=== PATIENT | female | born 1985 | race Caucasian/White ===

== ENCOUNTER 2021-07-10 19:55 | Emergency (ER) | payer MEDICAID ==
[~2021-07-10] VITALS: Ht 157.5 cm; Wt 128.0 kg
[2021-07-10 20:08] VITALS: BP 151/82
[2021-07-10] MEDS ORDERED: HYDROCODONE/ACETAMINOPHEN 5/325MG TABLET PO ONE (20:45)
[2021-07-10] MEDS ORDERED: LIDOCAINE HCL/PF 1% 10 MG/ML 5ML VIAL INFIL ONE (20:45)
[2021-07-10] MEDS ORDERED: LIDOCAINE HCL 1% 20ML VIAL (Pyxis) INJ INFIL NR (21:07)
[2021-07-10] MEDS ORDERED: CEPH500C2 MT (22:13)
[2021-07-10] MEDS ORDERED: HYDR-4001 MT (22:13)
[2021-07-10] MEDS ORDERED: SULF1TAB48 MT (22:13)
[2021-07-10] MEDS ORDERED: CEFTRIAXONE SODIUM 1 G/VIAL IM ONE (22:15)
[2021-07-10] MEDS ORDERED: TETANUS, DIPHTHERIA, PERTUSSIS VAC/PF 0.5ML (>10YR OLD) IM ONE (22:30)
== END 2021-07-10 23:11 | disposition home or self-care (01) ==
LOC: ER 19:55
DX: L08.9 Local infection of the skin and subcutaneous tissue, unspecified (principal); M79.674 Pain in right toe(s); E11.9 Type 2 diabetes mellitus without complications; I10 Essential (primary) hypertension; Z97.5 Presence of (intrauterine) contraceptive device; Z98.890 Other specified postprocedural states; Z88.6 Allergy status to analgesic agent
CPT/HCPCS: 11730; 73630; 90471; 90715; 96372; 99284; J0696; J3490

== ENCOUNTER 2021-07-26 03:12 | Emergency (ER) | payer MEDICAID ==
[~2021-07-26] VITALS: Ht 157.5 cm; Wt 122.0 kg
[~2021-07-26 03:12] MED LIST: CEPH500C2 MT; HYDR-4001 MT; SULF1TAB48 MT
[2021-07-26] MEDS ORDERED: KETOROLAC 60MG/2ML VIAL IM ONE (07:00)
[2021-07-26] MEDS ORDERED: HYDROCODONE/ACETAMINOPHEN 5/325MG TABLET PO ONE (07:15)
[2021-07-26 07:20] VITALS: BP 165/93
== END 2021-07-26 07:50 | disposition home or self-care (01) ==
LOC: ER 03:31
DX: S09.8XXA Other specified injuries of head, initial encounter (principal); R07.9 Chest pain, unspecified; E11.9 Type 2 diabetes mellitus without complications; I10 Essential (primary) hypertension; E78.00 Pure hypercholesterolemia, unspecified; W01.0XXA Fall on same level from slipping, tripping and stumbling without subsequent striking against object, initial encounter; Y93.F1 Activity, caregiving, bathing; Y92.89 Other specified places as the place of occurrence of the external cause; Y99.9 Unspecified external cause status; Z98.890 Other specified postprocedural states
CPT/HCPCS: 71045; 93005; 96372; 99283; J1885

== ENCOUNTER 2021-11-11 08:25 | Emergency (ER) | payer MEDICAID ==
[~2021-11-11] VITALS: Ht 162.6 cm; Wt 86.0 kg
[2021-11-11 10:03] LABS: CLARITY URINE CLEAR (CLEAR); COLOR URINE YELLOW (YELLOW); KETONES URINE NEGATIVE (NEGATIVE); LEUKOCYTE ESTERASE URINE 3+ (NEGATIVE); NITRITE URINE NEGATIVE (NEGATIVE); OCCULT BLOOD URINE NEGATIVE (NEGATIVE); PH URINE 5.5 (4.5-8.0); PROTEIN URINE NEGATIVE (NEGATIVE); SPECIFIC GRAVITY URINE 1.012 (1.005-1.030); UROBILINOGEN URINE 0.2 E.U./dL (0.2-1.0)
[2021-11-11] MEDS ORDERED: IBUP-2029 MT (10:16)
[2021-11-11] MEDS ORDERED: ONDA4TAB50 MT (10:16)
[2021-11-11] MEDS ORDERED: SULF1TAB48 MT (10:16)
[2021-11-11 10:33] VITALS: BP 141/71
[2021-11-11] MEDS ORDERED: SULFAMETHOXAZOLE/TRIMETHOPRIM 800/160MG TABLET PO NR (11:00)
== END 2021-11-11 10:33 | disposition home or self-care (01) ==
LOC: ER 08:25
DX: N39.0 Urinary tract infection, site not specified (principal); I10 Essential (primary) hypertension; E78.00 Pure hypercholesterolemia, unspecified; E11.9 Type 2 diabetes mellitus without complications; Z13.9 Encounter for screening, unspecified; Z88.6 Allergy status to analgesic agent; Z98.890 Other specified postprocedural states
CPT/HCPCS: 81003; 99283

== ENCOUNTER 2022-09-14 18:33 | Inpatient (IN) | payer MEDICAID ==
[~2022-09-14] VITALS: Ht 157.5 cm; Wt 118.8 kg
[~2022-09-14 18:33] MED LIST changes: +IBUP-2029 MT; +ONDA4TAB50 MT
[2022-09-14] MEDS ORDERED: FAMOTIDINE 20MG/2ML VIAL IV ONE (19:00)
[2022-09-14] MEDS ORDERED: METHYLPREDNISOLONE SOD SUCC 125 MG/2 ML VIAL IV ONE (19:00)
[2022-09-14] MEDS ORDERED: EPINEPHRINE 1:1000 1 MG/ML AMP IM ONE (19:00)
[2022-09-14] MEDS ORDERED: SODIUM CHLORIDE 0.9% 1,000 ML IV SCH (19:00)
[2022-09-14] MEDS: ALBUTEROL (0.083%) 2.5MG/3ML NEB HHN SCH ×2 (19:33→19:34)
[2022-09-14 19:42] LABS: BASOPHILS % 0.3 % (0.0-2.0); EOSINOPHILS % 1.8 % (0.0-5.0); HEMATOCRIT. 37.4 % (36.0-48.0); HEMOGLOBIN. 12.5 g/dL (12.0-16.0); LYMPHOCYTES % 34.8 % (20.0-50.0); MEAN CORPUSCULAR HEMOGLOBIN 30.7 pg (28.0-32.0); MEAN CORPUSCULAR VOLUME 91.5 fL (81.0-99.0); MEAN PLATELET VOLUME 9.3 fl (7.4-10.4); MONOCYTES % 8.2 % (2.0-8.0); NEUTROPHILS % 54.9 % (40.0-76.0); PLATELET 312 x1000/uL (130-400); RED BLOOD CELL COUNT 4.09 mill/uL (4.2-5.4); RED CELL DISTRIBUTION WIDTH 13.7 % (11.6-14.6)
[2022-09-14 20:35] LABS: CHLORIDE 105 mEq/L (98-107)
[2022-09-14] MEDS ORDERED: ONDANSETRON HCL 4MG/2ML INJ IV PRN (21:45)
[2022-09-14] MEDS ORDERED: EPINEPHRINE 1:1000 1 MG/ML AMP IM PRN (21:45)
[2022-09-14] MEDS ORDERED: DEXTROSE 50% WATER 50ML SYRINGE IV PRN (21:45)
[2022-09-14] MEDS ORDERED: CLONIDINE 0.1MG TABLET PO PRN (21:45)
[2022-09-14] MEDS: FAMOTIDINE 20MG/2ML VIAL IV SCH (22:18)
[2022-09-14] MEDS: DIPHENHYDRAMINE 50MG/ML VIAL IV SCH (22:18)
[2022-09-15 05:39] LABS: CHLORIDE 108 mEq/L (98-107)
[2022-09-15 05:56] LABS: BASOPHILS % 0.1 % (0.0-2.0); HEMATOCRIT. 39.9 % (36.0-48.0); HEMOGLOBIN. 12.9 g/dL (12.0-16.0); LYMPHOCYTES % 6.5 % (20.0-50.0); MEAN CORPUSCULAR HEMOGLOBIN 29.9 pg (28.0-32.0); MEAN CORPUSCULAR VOLUME 92.8 fL (81.0-99.0); MEAN PLATELET VOLUME 9.1 fl (7.4-10.4); NEUTROPHILS % 92.4 % (40.0-76.0); PLATELET 264 x1000/uL (130-400); RED CELL DISTRIBUTION WIDTH 14.1 % (11.6-14.6)
[2022-09-15] MEDS: DIPHENHYDRAMINE 50MG/ML VIAL IV SCH ×3 (06:12→20:20)
[2022-09-15] MEDS: BLOOD SUGAR DIAGNOSTIC STRIP TEST SCH ×4 (06:27→20:20)
[2022-09-15] MEDS: METHYLPREDNISOLONE SOD SUCC 125 MG/2 ML VIAL IV SCH ×3 (09:47→20:20)
[2022-09-15] MEDS: FAMOTIDINE 20MG/2ML VIAL IV SCH ×2 (10:44→20:20)
[2022-09-15] MEDS: INSULIN LISPRO 100 UNITS/ML SUBCUT SCH ×3 (11:00→20:32)
[2022-09-15] MEDS ORDERED: RACEPINEPHRINE 2.25% 0.5ML NEB VIAL HHN PRN (11:30)
[2022-09-15] MEDS ORDERED: IPRATROPIUM/ALBUTEROL 0.5-3(2.5)MG/3ML NEB HHN PRN (11:30)
[2022-09-15 14:59] VITALS: BP 118/55
[2022-09-15 15:00] VITALS: BP 118/55
[2022-09-15] MEDS ORDERED: ATOR10TA69 PO (15:58)
[2022-09-15] MEDS ORDERED: ENAL-75 PO (15:58)
[2022-09-15] MEDS ORDERED: METF-414 PO (15:58)
[2022-09-15] MEDS ORDERED: GLYB5TAB7 PO (15:58)
[2022-09-15 16:00] VITALS: BP 111/58
[2022-09-15] MEDS: METFORMIN HCL 500MG TABLET PO SCH (17:37)
[2022-09-15 20:02] VITALS: BP 128/68
[2022-09-15] MEDS: ATORVASTATIN CALCIUM 10MG TABLET PO SCH (20:20)
[2022-09-16 00:05] VITALS: BP 115/64
[2022-09-16 04:00] VITALS: BP 123/57
[2022-09-16] MEDS: BLOOD SUGAR DIAGNOSTIC STRIP TEST SCH ×4 (05:28→21:00)
[2022-09-16] MEDS: DIPHENHYDRAMINE 50MG/ML VIAL IV SCH ×3 (05:28→21:32)
[2022-09-16] MEDS: METHYLPREDNISOLONE SOD SUCC 125 MG/2 ML VIAL IV SCH ×3 (05:28→21:32)
[2022-09-16] MEDS: INSULIN LISPRO 100 UNITS/ML SUBCUT SCH ×4 (05:33→21:33)
[2022-09-16 08:00] VITALS: BP 113/67
[2022-09-16] MEDS: FAMOTIDINE 20MG/2ML VIAL IV SCH (08:45)
[2022-09-16] MEDS: GLYBURIDE 5MG TABLET PO SCH ×3 (08:45→17:24)
[2022-09-16] MEDS: METFORMIN HCL 500MG TABLET PO SCH ×2 (08:45→17:24)
[2022-09-16] MEDS: ENALAPRIL 5MG TABLET PO SCH (08:46)
[2022-09-16] MEDS ORDERED: INSULIN LISPRO 100 UNITS/ML SUBCUT NR (11:45)
[2022-09-16 12:00] VITALS: BP 116/57
[2022-09-16] MEDS ORDERED: DEXTROSE 50% WATER 50ML SYRINGE IV PRN (12:00)
[2022-09-16] MEDS ORDERED: BLOOD SUGAR DIAGNOSTIC STRIP TEST SCH (12:40)
[2022-09-16] MEDS ORDERED: INSULIN LISPRO 100 UNITS/ML SUBCUT SCH (13:10)
[2022-09-16 16:00] VITALS: BP 113/69
[2022-09-16 20:42] VITALS: BP 120/63
[2022-09-16] MEDS: ATORVASTATIN CALCIUM 10MG TABLET PO SCH (21:32)
[2022-09-16] MEDS: FAMOTIDINE 20MG TABLET PO SCH (21:32)
[2022-09-17 00:11] VITALS: BP 114/67
[2022-09-17 04:00] VITALS: BP 115/63
[2022-09-17] MEDS: BLOOD SUGAR DIAGNOSTIC STRIP TEST SCH ×2 (06:17→12:40)
[2022-09-17] MEDS: INSULIN LISPRO 100 UNITS/ML SUBCUT SCH ×2 (06:17→12:48)
[2022-09-17] MEDS: METHYLPREDNISOLONE SOD SUCC 125 MG/2 ML VIAL IV SCH ×2 (06:17→14:02)
[2022-09-17] MEDS: DIPHENHYDRAMINE 50MG/ML VIAL IV SCH ×2 (06:17→14:02)
[2022-09-17 07:35] VITALS: BP 126/70
[2022-09-17 07:47] LABS: HEMATOCRIT. 35.4 % (36.0-48.0); HEMOGLOBIN. 11.8 g/dL (12.0-16.0); MEAN CORPUSCULAR HEMOGLOBIN 30.1 pg (28.0-32.0); MEAN PLATELET VOLUME 10.2 fl (7.4-10.4); PLATELET 275 x1000/uL (130-400); RED BLOOD CELL COUNT 3.93 mill/uL (4.2-5.4); RED CELL DISTRIBUTION WIDTH 13.5 % (11.6-14.6)
[2022-09-17 08:33] LABS: CHLORIDE 102 mEq/L (98-107)
[2022-09-17] MEDS: GLYBURIDE 5MG TABLET PO SCH ×2 (08:52→12:47)
[2022-09-17] MEDS: METFORMIN HCL 500MG TABLET PO SCH (08:52)
[2022-09-17] MEDS: ENALAPRIL 5MG TABLET PO SCH (08:52)
[2022-09-17] MEDS: FAMOTIDINE 20MG TABLET PO SCH (08:52)
[2022-09-17 11:46] VITALS: BP 122/71
[2022-09-17] MEDS ORDERED: MED4 MT (13:21)
[2022-09-17] MEDS ORDERED: EPIN0.3P3 IM (13:21)
[2022-09-17 13:57] VITALS: BP 125/69
[2022-09-17 15:46] LABS: PLATELET ESTIMATE NORMAL
== END 2022-09-17 15:57 | disposition home or self-care (01) | DRG 811 ==
LOC: ER 18:33 → MICUSO 21:25 → EDBEDREQ 21:31 → 7WST 09-15 14:39
PROVIDERS: ADMIT Family Medicine Adult Medicine; ATTEND Family Medicine Adult Medicine
DX: T78.09XA Anaphylactic reaction due to other food products, initial encounter (principal); J96.00 Acute respiratory failure, unspecified whether with hypoxia or hypercapnia; D72.829 Elevated white blood cell count, unspecified; E11.65 Type 2 diabetes mellitus with hyperglycemia; E78.00 Pure hypercholesterolemia, unspecified; E66.01 Morbid (severe) obesity due to excess calories; Z20.822 Contact with and (suspected) exposure to COVID-19; I10 Essential (primary) hypertension; T39.1X5A Adverse effect of 4-Aminophenol derivatives, initial encounter; Z82.49 Family history of ischemic heart disease and other diseases of the circulatory system; Z98.891 History of uterine scar from previous surgery; Z88.6 Allergy status to analgesic agent; Z79.84 Long term (current) use of oral hypoglycemic drugs; Z68.42 Body mass index [BMI] 45.0-49.9, adult; Y92.89 Other specified places as the place of occurrence of the external cause
CPT/HCPCS: 36415; 71045; 80048; 80053; 82962; 83036; 85025; 87426; 93970; 94640; 99291; C9803; J1200; J1815; J2930; J3490

== ENCOUNTER 2023-02-12 18:38 | Emergency (ER) | payer MEDICAID ==
[~2023-02-12] VITALS: Ht 157.5 cm; Wt 127.0 kg
[~2023-02-12 18:38] MED LIST changes: +ATOR10TA69 PO; -CEPH500C2 MT; +ENAL-75 PO; +EPIN0.3P3 IM; +GLYB5TAB7 PO; +MED4 MT; +METF-414 PO; -SULF1TAB48 MT
[2023-02-12 18:41] VITALS: BP 160/53; PULSE 98; RESP 18; TEMP 98.9; O2SAT 100
[2023-02-12] MEDS ORDERED: KETOROLAC 30MG/ML VIAL IM ONE (19:30)
[2023-02-12] MEDS ORDERED: IBUP-2029 MT (19:43)
[2023-02-12] MEDS ORDERED: KETOROLAC 30MG/ML VIAL IM NR (20:30)
== END 2023-02-12 21:01 | disposition home or self-care (01) ==
LOC: ER 18:38
DX: S90.31XA Contusion of right foot, initial encounter (principal); S93.401A Sprain of unspecified ligament of right ankle, initial encounter; E11.9 Type 2 diabetes mellitus without complications; E78.00 Pure hypercholesterolemia, unspecified; I10 Essential (primary) hypertension; Z98.890 Other specified postprocedural states; Z79.899 Other long term (current) drug therapy; X58.XXXA Exposure to other specified factors, initial encounter; Y93.89 Activity, other specified; Y92.89 Other specified places as the place of occurrence of the external cause; Y99.8 Other external cause status
CPT/HCPCS: 73630; 96372; 99283; J1885; Z7610 ×2

== ENCOUNTER 2023-09-29 18:49 | Emergency (ER) | payer MEDICAID ==
[~2023-09-29] VITALS: Ht 157.5 cm; Wt 127.0 kg
[2023-09-29 18:50] VITALS: TEMP 98.3; O2SAT 99
[2023-09-29 22:18] VITALS: BP 145/100; PULSE 110; RESP 12
[2023-09-29] MEDS: CYCLOBENZAPRINE 10MG TABLET PO ONE (22:18)
[2023-09-29] MEDS: IBUPROFEN 600MG TABLET PO ONE (22:18)
[2023-09-29] MEDS ORDERED: CYCL10TA21 MT (22:32)
[2023-09-29] MEDS ORDERED: NAPR-1176 MT (22:32)
== END 2023-09-29 22:45 | disposition home or self-care (01) ==
LOC: ER 18:49
DX: S90.32XA Contusion of left foot, initial encounter (principal); I10 Essential (primary) hypertension; E11.9 Type 2 diabetes mellitus without complications; E78.00 Pure hypercholesterolemia, unspecified; Z88.6 Allergy status to analgesic agent; Z90.49 Acquired absence of other specified parts of digestive tract; Z98.890 Other specified postprocedural states; X58.XXXA Exposure to other specified factors, initial encounter; Y93.01 Activity, walking, marching and hiking; Y92.89 Other specified places as the place of occurrence of the external cause; Y99.8 Other external cause status
CPT/HCPCS: 73620; 93971; 99284

== ENCOUNTER 2024-02-21 20:46 | Emergency (ER) | payer MEDICAID ==
[~2024-02-21] VITALS: Ht 157.5 cm; Wt 118.0 kg
[~2024-02-21 20:46] MED LIST changes: +CYCL10TA21 MT; -MED4 MT; +METH4TAB95 MT; +NAPR-1176 MT
[2024-02-21 21:21] VITALS: O2SAT 100
[2024-02-21 21:31] VITALS: BP 140/94; PULSE 102; RESP 16; TEMP 98.7; O2SAT 100
[2024-02-21] MEDS: FAMOTIDINE 20MG/2ML VIAL IV ONE (22:55)
[2024-02-21] MEDS: DIPHENHYDRAMINE 50MG/ML VIAL IM ONE (22:55)
[2024-02-21] MEDS ORDERED: EPIN0.3P3 IM (23:46)
[2024-02-22] MEDS: DEXAMETHASONE 10 MG/ML VIAL IM ONE (00:15)
== END 2024-02-22 00:44 | disposition home or self-care (01) ==
LOC: ER 20:46
DX: T78.40XA Allergy, unspecified, initial encounter (principal); E11.9 Type 2 diabetes mellitus without complications; E78.00 Pure hypercholesterolemia, unspecified; I10 Essential (primary) hypertension; Z90.49 Acquired absence of other specified parts of digestive tract; Z79.899 Other long term (current) drug therapy; Z98.890 Other specified postprocedural states; Z88.6 Allergy status to analgesic agent; X58.XXXA Exposure to other specified factors, initial encounter; Y93.89 Activity, other specified; Y92.89 Other specified places as the place of occurrence of the external cause; Y99.8 Other external cause status
CPT/HCPCS: 99284; 96374; 96372 ×2; J1200; J3490; J1100

== ENCOUNTER 2024-06-14 03:19 | Emergency (ER) | payer MEDICAID ==
[~2024-06-14 03:19] MED LIST changes: +ASPI-1406 PO; +ATOR20TA65 PO; +BLOO-1657 XX; +CHOL2000 PO; +DICL100G58 TP; +DIPH25CA51 PO; +ENAL-77 PO; +EPIN0.3A3 IM; -HYDR-4001 MT; +LIDO700A30 TP; +METF-416 PO; +TIRZ5PEN SUBCUT
[2024-06-14] MEDS: EPINEPHRINE 1:1000 1 MG/ML AMP SUBCUT ONE (03:29)
[2024-06-14] MEDS: METHYLPREDNISOLONE SOD SUCC 125MG/2ML (ACT-O-VIAL) IV ONE (03:30)
[2024-06-14] MEDS: SODIUM CHLORIDE 0.9% 1,000 ML IV ONE (03:30)
[2024-06-14] MEDS: DIPHENHYDRAMINE 50MG/ML VIAL IV ONE ×2 (03:30→05:00)
[2024-06-14] MEDS: FAMOTIDINE 20MG/2ML VIAL IV ONE ×2 (03:34→06:01)
[2024-06-14 03:37] LABS: BASOPHILS % 0.6 % (0.0-2.0); EOSINOPHILS % 1.2 % (0.0-5.0); HEMATOCRIT. 38.3 % (36.0-48.0); LYMPHOCYTES % 37.1 % (20.0-50.0); MEAN CORPUSCULAR HEMOGLOBIN 30.8 pg (28.0-32.0); MEAN CORPUSCULAR HGB CONC 34.1 g/dL (31.0-37.0); MEAN CORPUSCULAR VOLUME 90.4 fL (81.0-99.0); MEAN PLATELET VOLUME 9.9 fl (7.4-10.4); NEUTROPHILS % 52.1 % (40.0-76.0); PLATELET 316 x1000/uL (130-400); RED BLOOD CELL COUNT 4.24 mill/uL (4.2-5.4); RED CELL DISTRIBUTION WIDTH 13.7 % (11.6-14.6); WHITE BLOOD COUNT 11.7 x1000/uL (4.5-11.0)
[2024-06-14 03:46] LABS: CHLORIDE 102 mEq/L (98-107); POTASSIUM 4.4 mEq/L (3.5-5.1); SODIUM 134 mEq/L (136-145)
[2024-06-14 03:47] LABS: CALCIUM 9.5 mg/dL (8.7-10.4); CARBON DIOXIDE 18 mEq/L (21-32)
[2024-06-14 03:52] LABS: CREATININE 0.9 mg/dL (0.6-1.0); GLUCOSE 278 mg/dL (70-105); UREA NITROGEN BLOOD 15 mg/dL (9-23)
[2024-06-14 04:17] LABS: HCG SCREEN NEGATIVE
[2024-06-14] MEDS: KETOROLAC 15MG/ML VIAL IV ONE (04:20)
[2024-06-14] MEDS ORDERED: P20 MT (05:58)
[2024-06-14] MEDS ORDERED: EPIN0.3P3 IM (05:58)
[2024-06-14] MEDS ORDERED: DIPH25TA62 MT (05:58)
[2024-06-14] MEDS ORDERED: FAMO-287 MT (05:58)
[2024-06-14 06:06] VITALS: BP 133/77; PULSE 99; RESP 22; O2SAT 96
== END 2024-06-14 06:20 | disposition home or self-care (01) ==
LOC: ER 03:19
DX: T78.40XA Allergy, unspecified, initial encounter (principal); L50.9 Urticaria, unspecified; E11.65 Type 2 diabetes mellitus with hyperglycemia; E78.00 Pure hypercholesterolemia, unspecified; I10 Essential (primary) hypertension; Z90.49 Acquired absence of other specified parts of digestive tract; Z79.899 Other long term (current) drug therapy; Z88.6 Allergy status to analgesic agent; X58.XXXA Exposure to other specified factors, initial encounter
CPT/HCPCS: 80048; 84703; 85025; 36415; 71045; 93005; 96361; 96372; 96374; 96375; 96376; 99285; J1200; J3490 ×2; J1885; J2919; J7030; A4663; Z7610 ×2; A4606

== ENCOUNTER 2025-03-05 20:43 | Emergency (ER) | payer MEDICAID ==
[~2025-03-05] VITALS: Ht 167.6 cm; Wt 113.0 kg
[~2025-03-05 20:43] MED LIST changes: -ATOR10TA69 PO; -DIPH25CA51 PO; +DIPH25CA83 MT; -ENAL-75 PO; -ENAL-77 PO; -EPIN0.3A3 IM; +FAMO-135 MT; +IBUP-1455 MT; -IBUP-2029 MT; -METF-414 PO
[2025-03-05] MEDS: KETOROLAC 30MG/ML VIAL IM ONE (22:49)
[2025-03-05] MEDS ORDERED: IBUP-2030 MT (23:56)
[2025-03-06 00:01] VITALS: BP 139/94; PULSE 86; RESP 18; TEMP 37.2; O2SAT 99
== END 2025-03-06 00:06 | disposition home or self-care (01) ==
LOC: ER 20:43
DX: S92.354A Nondisplaced fracture of fifth metatarsal bone, right foot, initial encounter for closed fracture (principal); I10 Essential (primary) hypertension; E78.00 Pure hypercholesterolemia, unspecified; E11.9 Type 2 diabetes mellitus without complications; Z90.49 Acquired absence of other specified parts of digestive tract; Z79.899 Other long term (current) drug therapy; Z79.84 Long term (current) use of oral hypoglycemic drugs; Z79.82 Long term (current) use of aspirin; Z91.018 Allergy to other foods; Z91.013 Allergy to seafood; W19.XXXA Unspecified fall, initial encounter; Y93.89 Activity, other specified; Y92.89 Other specified places as the place of occurrence of the external cause; Y99.8 Other external cause status
CPT/HCPCS: 99283; 73630; 96372; J1885